=== PATIENT | male | born 1950 | race Caucasian/White ===

== ENCOUNTER → 2017-11-25 | Outpatient (CLI) | payer MEDICARE, OTHER ==
--- NOTE | 2017-11-26 08:03 | CTL ---
EXAMINATION TYPE: CT Low Dose Lung DATE OF EXAM ORDERED: 11/25/2017 HISTORY: Personal history of tobacco abuse and COPD. Lung cancer screening CT DLP: 137.[address] CTDI: 3.4 mGy Automated exposure control for dose reduction was used. SCREENING VISIT: Initial COMPARISON: None TECHNIQUE: Low dose computed tomography scan was performed through the chest at 1 mm thick sections a nd reconstructed images in the coronal plane at [address] DIAGNOSTIC QUALITY: Satisfactory FINDINGS: LUNG NODULES: None. There is a 5 mm pulmonary nodule in the right upper lobe along the interlobar fissure that elongates on sagittal images such as series 7 image 125 and is seen on axial series 4 image 141. This is favore d to represent an intrafissural lymph node, however follow-up is recommended given the patient's high risk nature. Additionally there is a subpleural right lower lobe 6 mm pulmonary nodule with solid characteristics on series 4 image 152. Within the right middle lobe there is a subpleural solid 5 mm pulmonary nodule on series 4 image 199. In the right middle lobe there is a solid 3 mm nodule on series 4 image 185. On the left lower lobe medially on series 4 image 180 posterior to the descending thoracic aorta ther e is a 4 mm solid subpleural pulmonary nodule. LUNGS: COPD: Severity: Mild centrilobular Fibrosis: Severity: None Lymph nodes: No adenopathy Other findings: Pleural parenchymal scarring along lung bases is multifocal. There is a prominent epi cardial fat pad on the right. RIGHT PLEURAL SPACE: Effusion: None Calcification: None Thickening: None Pneumothorax: None LEFT PLEURAL SPACE: Effusion: None Calcification: None Thickening: None Pneumothorax: None HEART: Heart Size: Heart is unenlarged however the ascending thoracic aorta is upper limits of normal size m easuring 4.0 in the main pulmonary artery is just above upper limits of normal size measuring 3.1 cm. Coronary calcification: Moderate three-vessel Pericardial effusion: None OTHER FINDINGS: Upper abdomen: Grossly unremarkable in its visualized unenhanced portions Bony thorax: Minimal multilevel degenerative changes of the thoracic spine. Schmorl's node deformity of the midthoracic vertebral body. Supraclavicular region: No adenopathy IMPRESSION: 1. Bilateral subcentimeter pulmonary nodules compatible with a LUNG-RADS 3-Probably [id number] m follow-up suggested with six-month low dose CT. 2. Ascending thoracic aorta and main pulmonary artery are upper limits of normal and mildly enlarged respectively. 3. Moderate three-vessel coronary artery calcifications. 4. Mild centrilobular pulmonary emphysema. FOLLOW UP CT CHEST RECOMMENDATION: Six-month low dose CT CT LUNG RAD: Lung-Rad 3 Probably Benign
== END | disposition home or self-care (01) ==
LOC: RADCTMAIN 15:46
PROVIDERS: ATTEND Family Medicine
DX: Z12.2 Encounter for screening for malignant neoplasm of respiratory organs (principal); I25.10 Atherosclerotic heart disease of native coronary artery without angina pectoris; J43.2 Centrilobular emphysema; R91.8 Other nonspecific abnormal finding of lung field; I77.810 Thoracic aortic ectasia; I28.1 Aneurysm of pulmonary artery; Z87.891 Personal history of nicotine dependence

== ENCOUNTER → 2018-09-27 | Outpatient (CLI) | payer OTHER ==
--- NOTE | 2018-09-27 14:27 | CT ---
EXAMINATION TYPE: CT chest wo con DATE OF EXAM: 09/27/2018 COMPARISON: 11/25/2017 HISTORY: Follow up scan per patient CT DLP: 417.6 mGycm. Automated Exposure Control for Dose Reduction was Utilized. TECHNIQUE: CT scan of the thorax is performed without IV contrast. FINDINGS: LUNGS: There is mild background centrilobular emphysema. There is no pleural effusion or pneumothora x seen. The tracheobronchial tree is patent. There is decreased size and conspicuity of the nodule along the interlobar fissure previously measuri ng 5 mm and now measuring 4 mm. This is also decrease in density and marked on series 4 image 30. Thi s is highly favored to represent an intrafissural lymph node, benign. The pleural-based 6 mm pulmonary nodule along the right lower lobe posteriorly is unchanged in size a s on series 4 image 31. The right middle lobe pulmonary nodule measuring 5 mm on the prior exam again appears solid in nature and again currently measures 5 mm. MEDIASTINUM: Lack of IV contrast is noted to limit evaluation for mediastinal and especially hilar ad enopathy. There are no definitive greater than 1 cm hilar or mediastinal lymph nodes. Again the [facility] thoracic aorta is mildly enlarged measuring approximately 4.1 cm. No cardiomegaly or pericardial effusion is seen. Moderate three-vessel coronary artery calcifications are seen. OTHER: Too small to accurately characterize solitary hepatic lesion measures 8 mm on series 3 image 6 0. This is retrospectively unchanged from the prior 11/25/2017. There is slight low attenuation of the hepatic parenchyma although this does not yet meet criteria for hepatic steatosis. Minimal multileve l degenerative change of the thoracic spine and Schmorl's node formation of the midthoracic vertebral body are unchanged. IMPRESSION: 1. Stable bilateral pulmonary nodules measuring up to 6 mm. Return to annual screening is recommended with follow-up low dose chest CT in to 12 months. 2. Redemonstration of a mildly aneurysmal ascending thoracic aorta and moderate three-vessel coronary artery calcifications, marker of coronary artery disease.
== END | disposition home or self-care (01) ==
LOC: RADCTMAIN 12:55
PROVIDERS: ATTEND Internal Medicine Critical Care Medicine
DX: R91.8 Other nonspecific abnormal finding of lung field (principal); I25.10 Atherosclerotic heart disease of native coronary artery without angina pectoris; I71.2 Thoracic aortic aneurysm, without rupture
CPT/HCPCS: 71250

== ENCOUNTER → 2018-10-20 | Outpatient (CLI) | payer OTHER ==
[2018-10-20 08:38] LABS: HCT 41.8 % (39.0-53.0); HGB 13.3 gm/dL (13.0-17.5); MCH 28.8 pg (25.0-35.0); MCHC 31.8 g/dL (31.0-37.0); MCV 90.8 fL (80.0-100.0); Mean Platelet Volume 6.2; Platelet Count 330 k/uL (150-450); RDW 13.7 % (11.5-15.5); WBC 7.6 k/uL (3.8-10.6)
[2018-10-20 08:50] LABS: Anion Gap 6 mmol/L; Blood Urea Nitrogen 15 mg/dL (9-20); Carbon Dioxide 27 mmol/L (22-30); Chloride 106 mmol/L (98-107); Potassium 4.4 mmol/L (3.5-5.1); Sodium 139 mmol/L (137-145)
== END | disposition home or self-care (01) ==
LOC: LABPAT 07:43
PROVIDERS: ATTEND Internal Medicine Interventional Cardiology
DX: Z01.812 Encounter for preprocedural laboratory examination (principal); I25.10 Atherosclerotic heart disease of native coronary artery without angina pectoris; I10 Essential (primary) hypertension
CPT/HCPCS: 36415; 80051; 82565; 84520; 85027

== ENCOUNTER 2018-11-02 06:25 | Day surgery (SDC) | payer OTHER ==
[~2018-11-02 06:25] MED LIST: ALPRAZolam 0.25 MG TAB PO PRN; ALPRAZolam 0.5 MG TAB PO PRN; ASPIRIN 325 MG TAB PO STA; ATORVASTATIN 80 MG TAB PO STA; NITROGLYCERIN SL TABS 0.4 MG TAB SUBLINGUAL PRN; SODIUM CHLORIDE 0.9% 1,000 ML in EMPTY BAG 1 BAG IV ONE
[2018-11-02] MEDS ORDERED: VERAPAMIL 2.5 MG/ML 2 ML AMP ONE (07:30)
[2018-11-02] MEDS ORDERED: LIDOCAINE 1% INJ 10MG/ML (20 ML MDV) ONE (07:30)
[2018-11-02] MEDS ORDERED: HEPARIN SODIUM 1,000 UN/ML (10ML VL) ONE (07:30)
[2018-11-02] MEDS ORDERED: MIDAZOLAM (PF) 2 MG/2 ML VIAL IV ONE ×3 (07:55→08:30)
[2018-11-02] MEDS ORDERED: LIDOCAINE 1% INJ 10MG/ML (20 ML MDV) SQ ONE (07:55)
[2018-11-02] MEDS ORDERED: BIVALIRUDIN BOLUS 250 MG/50 ML IV ONE (08:30)
[2018-11-02] MEDS ORDERED: BIVALIRUDIN 250 MG in SODIUM CHLORIDE 0.9% 36 ML IV ONE (08:31)
[2018-11-02] MEDS ORDERED: TICAGRELOR 90 MG TAB ONE (08:40)
[2018-11-02] MEDS ORDERED: IOPAMIDOL-370 100ML BTL INJ ONE ×2 (08:43→08:51)
[2018-11-02] MEDS ORDERED: TICAGRELOR 90 MG TAB PO ONE (08:43)
[2018-11-02] MEDS ORDERED: NITROGLYCERIN 1000MCG/10ML SYRINGE INTRACORON ONE (08:47)
[2018-11-02] MEDS ORDERED: ZOLPIDEM 5 MG TAB PO PRN (09:08)
[2018-11-02] MEDS ORDERED: NITROGLYCERIN SL TABS 0.4 MG TAB SUBLINGUAL PRN (09:08)
[2018-11-02] MEDS ORDERED: MAG HYDROX/AL HYDROX/SIMETH 30 ML CUP PO PRN (09:08)
[2018-11-02] MEDS ORDERED: RX INFO: IV CONTRAST WAS GIVEN 1 EACH MISC MISCELLANE PRN (09:08)
[2018-11-02] MEDS ORDERED: ATROPINE SULFATE 0.1 MG/ML 10ML SYRINGE IV PRN (09:08)
[2018-11-02] MEDS ORDERED: SODIUM CHLORIDE 0.9% 1,000 ML IV SCH (09:15)
[2018-11-02] MEDS ORDERED: fentaNYL (PF) 50 MCG/ML 2 ML AMP IVP PRN (11:10)
[2018-11-02] MEDS ORDERED: fentaNYL (PF) 50 MCG/ML 2 ML AMP ONE (11:12)
[2018-11-02 15:12] VITALS: BMI 27.8
--- NOTE | 2018-11-02 16:50 | CC ---
CARDIAC CATHETERIZATION REPORT DATE OF SERVICE: 11/02/2018 PERFORMING PHYSICIAN: Presley Perez MD, administrative officer. PROCEDURES PERFORMED: 1. Selective right and left coronary angiogram. 2. Left heart catheterization. 3. Successful stenting of the mid LAD using a 3.0 x 15 mm Xience drug-eluting stent with an excellent angiographic result and reduction of stenosis from 95% to 0%. INDICATION: This is a pleasant 68-year-old gentleman with history of coronary artery disease as well as hypertension and dyslipidemia who was experiencing symptoms of chest discomfort with extreme exertion. He underwent myocardial perfusion imaging stress test and that showed reversible . Because of that, heart catheterization was advised. APPROACH: Right common femoral artery. COMPLICATIONS: None. LEVEL OF SEDATION: Moderate with sedation length of about 45 minutes. PROCEDURE DESCRIPTION: After obtaining informed consent, the patient was brought to the cardiac laborer bituminous paving. The right common femoral artery was cannulated using micropuncture technique and the micropuncture wire passed easily. Then I placed a 6-Afghan sheath in the right common femoral artery. After that I did selective right and left coronary angiogram using JR4 and JL4 catheters. Left heart catheterization was performed using a 6-Afghan pigtail catheter. After that I did intervene on the LAD. Please see a separate paragraph for that. SELECTIVE CORONARY ANGIOGRAM: 1. The right coronary artery is a large-caliber vessel and is a dominant vessel. The proximal RCA has intermediate lesion that appeared to be in the range of 50% to 60%. The RCA in the mid portion appeared to be normal and distally appeared to have mild disease only and bifurcates into PDA and PLV branches. Both appeared to be angiographically normal. 2. The left main appeared to be angiographically normal. It furcates into left circumflex, ramus intermedius and left anterior descending artery. 3. The left circumflex is a large-caliber vessel. It is a nondominant vessel. The proximal circumflex appeared to have mild disease only. The mid circumflex has a long tubular lesion that appeared to be in the range of 95%. The circumflex gives rise after the lesion to OM branch which appeared to be normal and continues after that as a small-caliber vessel in the AV groove. 4. The ramus intermedius appeared to be a large-caliber vessel and seems to be angiographically normal. 5. The LAD. The proximal LAD appeared to have mild disease only. The mid LAD has a lesion that appeared to be in the range of 80%. This is by the bifurcation of the first diagonal branch, which appeared to be normal. The LAD distally appeared to be normal. HEMODYNAMICS: The left ventricular end-diastolic pressure was about 12 mmHg without significant gradient across the aortic valve. PCI OF THE LAD: Anticoagulation was initiated using Angiomax. Subsequently I did engage the left main using JL4 guide. A Whisper wire was used to wire the LAD. I did balloon angioplasty using a 2.5 x 12 mm balloon before I deployed a 3.0 x 15 mm Xience, where the stent was positioned under fluoroscopic guidance and deployed under 16 atmospheres for 20 seconds with the following angiogram showing good angiographic results. CONCLUSION: 1. Critical disease involving the mid left circumflex coronary artery. 2. Severe disease involving the mid LAD. 3. Successful stenting of the mid LAD using 3.0 x 15 mm Xience drug-eluting stent with excellent angiographic results. POST-PROCEDURE MANAGEMENT: 1. Atherectomy and stenting of the left circumflex. 2. Follow up with the patient. MMODL / IJN: [id number] /
[2018-11-02 19:53] VITALS: RESP 17
[2018-11-02] MEDS: TICAGRELOR 90 MG TAB PO SCH (19:54)
[2018-11-02] MEDS: SYMBICORT 160-4.5 MCG INHALER INHALATION SCH (20:43)
[2018-11-03 06:56] LABS: Anion Gap 5 mmol/L; Basophils % (A) 1 %; Blood Urea Nitrogen 11 mg/dL (9-20); Calcium 9.5 mg/dL (8.4-10.2); Carbon Dioxide 29 mmol/L (22-30); Chloride 106 mmol/L (98-107); Eosinophils # (A) 0.2 k/uL (0-0.7); Eosinophils % (A) 2 %; Glucose 102 mg/dL (74-99); HCT 38.7 % (39.0-53.0); HGB 12.6 gm/dL (13.0-17.5); Lymphocytes # (A) 0.8 k/uL (1.0-4.8); Lymphocytes % (A) 10 %; MCH 29.5 pg (25.0-35.0); MCHC 32.4 g/dL (31.0-37.0); Mean Platelet Volume 6.8; Monocytes # (A) 0.4 k/uL (0-1.0); Monocytes % (A) 4 %; Neutrophils # (A) 6.5 k/uL (1.3-7.7); Neutrophils % (A) 81 %; Platelet Count 312 k/uL (150-450); Potassium 4.7 mmol/L (3.5-5.1); RBC 4.26 m/uL (4.30-5.90); RDW 14.3 % (11.5-15.5); Sodium 140 mmol/L (137-145)
[2018-11-03] MEDS ORDERED: PANTOPRAZOLE 40 MG TABLET PO SCH (07:30)
[2018-11-03] MEDS: SYMBICORT 160-4.5 MCG INHALER INHALATION SCH (08:05)
[2018-11-03] MEDS: TICAGRELOR 90 MG TAB PO SCH (08:39)
[2018-11-03 08:46] VITALS: BP 147/98; PULSE 102; TEMP 97.6
[2018-11-03] MEDS ORDERED: ASPIRIN 81 MG PO SCH ×2 (09:00)
[2018-11-03] MEDS ORDERED: FERROUS SULFATE 325 MG TAB PO SCH (09:00)
[2018-11-03] MEDS ORDERED: CHOLECALCIFEROL 1,000 UNIT TAB PO SCH (09:00)
[2018-11-03] MEDS ORDERED: LOSARTAN 50 MG TAB PO SCH (09:00)
[2018-11-03] MEDS ORDERED: ATORVASTATIN 40 MG TAB PO SCH (09:00)
[2018-11-03] MEDS ORDERED: MONTELUKAST 10 MG TAB PO SCH (09:00)
[2018-11-03] MEDS ORDERED: FINASTERIDE 5 MG TAB PO SCH (09:00)
--- NOTE | 2018-11-03 18:05 | DS ---
DISCHARGE SUMMARY ADMISSION DATE: November 02, 2018. DISCHARGE DATE: November 03, 2018 BRIEF HISTORY: This is a pleasant 68-year-old gentleman who was experiencing chest discomfort and underwent myocardial perfusion imaging stress test which came in to be abnormal showing reversible defect. The heart catheterization was advised. He underwent heart catheterization yesterday and was found to have severe disease involving the LAD and left circumflex. The patient underwent successful stenting of the LAD with good angiographic results and without any complication. On follow up with him today, he is doing good. The right groin is soft and nontender and without any bruises. The patient is going to be discharged home today on dual anti-platelet therapy and I will follow up with the patient in a week in the office. MMODL / IJN: [id number] /
== END 2018-11-03 09:23 | disposition home or self-care (01) ==
LOC: CATHCVL 06:25 → 3SCARD 08:52 → CATHCVL 11-03 09:23
PROVIDERS: ATTEND Internal Medicine Interventional Cardiology
DX: I25.10 Atherosclerotic heart disease of native coronary artery without angina pectoris (principal); I10 Essential (primary) hypertension; Z82.49 Family history of ischemic heart disease and other diseases of the circulatory system; I71.2 Thoracic aortic aneurysm, without rupture; E78.5 Hyperlipidemia, unspecified; Z79.82 Long term (current) use of aspirin; Z79.51 Long term (current) use of inhaled steroids; Z79.899 Other long term (current) drug therapy; Z88.5 Allergy status to narcotic agent
CPT/HCPCS: 94640 ×2; 93458; 80048; 85025; C9600; C1769 ×5; C1887 ×3; C1725; C1894 ×2; C1874; S0138; J2001; J3010; J0583; Q9967; J2250

== ENCOUNTER 2018-11-10 07:30 | Inpatient (IN) | payer OTHER ==
[~2018-11-10 07:30] MED LIST changes: +ASPIRIN 325 MG TAB PO ONE; -ASPIRIN 325 MG TAB PO STA; +ATORVASTATIN 80 MG TAB PO ONE; -ATORVASTATIN 80 MG TAB PO STA
[2018-11-10 12:02] LABS: Basophils # (A) 0.1 k/uL (0-0.2); Basophils % (A) 1 %; Eosinophils # (A) 0.2 k/uL (0-0.7); Eosinophils % (A) 2 %; HCT 41.6 % (39.0-53.0); HGB 13.9 gm/dL (13.0-17.5); Lymphocytes % (A) 11 %; MCH 30.1 pg (25.0-35.0); MCHC 33.4 g/dL (31.0-37.0); MCV 90.3 fL (80.0-100.0); Mean Platelet Volume 6.5; Monocytes # (A) 0.4 k/uL (0-1.0); Monocytes % (A) 5 %; Neutrophils # (A) 7.3 k/uL (1.3-7.7); Neutrophils % (A) 80 %; Platelet Count 409 k/uL (150-450); RBC 4.61 m/uL (4.30-5.90); RDW 13.1 % (11.5-15.5); WBC 9.2 k/uL (3.8-10.6)
[2018-11-10] MEDS ORDERED: LIDOCAINE 1% INJ 10MG/ML (20 ML MDV) SQ ONE (12:42)
[2018-11-10] MEDS ORDERED: SODIUM CHLORIDE 0.9% 1,000 ML IV ONE (12:46)
[2018-11-10] MEDS ORDERED: MIDAZOLAM (PF) 2 MG/2 ML VIAL IV ONE ×2 (12:46→14:11)
[2018-11-10] MEDS ORDERED: BIVALIRUDIN BOLUS 250 MG/50 ML IV ONE (12:52)
[2018-11-10] MEDS ORDERED: BIVALIRUDIN 250 MG in SODIUM CHLORIDE 0.9% 50 ML IV ONE ×2 (12:53→13:26)
[2018-11-10] MEDS ORDERED: fentaNYL (PF) 50 MCG/ML 2 ML AMP IV ONE (13:31)
[2018-11-10] MEDS ORDERED: IOPAMIDOL-370 125ML BTL INJ ONE (14:22)
[2018-11-10] MEDS ORDERED: CLOPIDOGREL 75 MG TAB PO ONE (14:22)
[2018-11-10] MEDS ORDERED: ALBUTEROL NEBULIZED 2.5 MG/3 ML INHALATION PRN (18:11)
[2018-11-10] MEDS ORDERED: SODIUM CHLORIDE 0.9% 1,000 ML IV SCH (18:15)
[2018-11-10] MEDS: SYMBICORT 160-4.5 MCG INHALER INHALATION SCH (19:59)
--- NOTE | 2018-11-10 21:41 | PTCA ---
PERCUTANEOUSTRANS CORORONARY ANGIOGRAPHY DATE OF SERVICE: 11/10/2018 PERFORMING PHYSICIAN: Presley Perez MD, data center solutions architect. PROCEDURES PERFORMED: 1. Atherectomy of the left circumflex coronary artery using the orbital atherectomy device from [facility]. 2. Successful stenting of the mid left circumflex coronary artery using 2.75 x 23 mm Xience drug-eluting stent with excellent angiographic results and reduction of stenosis from 99% to 0%. INDICATION: This is a 68-year-old gentleman with history of coronary artery disease who underwent heart catheterization last week for shortness of breath with exertion. The heart catheterization at that point revealed extremely calcified right and left coronary systems with severe disease involving the mid LAD as well as critical disease involving the mid left circumflex coronary artery. He underwent successful stenting of the LAD with good angiographic results. He continued to have shortness of breath with exertion when he was seen in the office last week. Because of that, he was brought today to undergo PCI of the left circumflex. APPROACH: Right common femoral artery. COMPLICATIONS: None. LEVEL OF SEDATION: Moderate, with sedation length of 1 hour and 40 minutes. PROCEDURE DESCRIPTION: After obtaining informed consent, the patient was brought to the cardiac irrigation laborer. The right common femoral artery was cannulated using micropuncture technique, and the micropuncture wire passed easily. Then I placed a 6-Japanese sheath in the right common femoral artery. At that point anticoagulation was initiated using Angiomax. Subsequently I did engage the left main using XB35 LAD guide. I did cross the lesion in the left circumflex using a long whisper J wire where the wire was advanced through the OM to second OM branch of the left circumflex. After that I attempted doing balloon angioplasty using 2.0 x 12 mm balloon, but the balloon would not cross the lesion in the mid left circumflex coronary artery. I did downgrade the balloon into 1.5 mm balloon, but that balloon would not cross that lesion in the mid left circumflex either. At that point I decided to do [id number] balloon which was 1.2 mm balloon. With that I was able to advance the balloon to the mid left circumflex while I did balloon angioplasty with that balloon. After that I tried to advance 2.0 x 8 mm semi-compliant balloon, and the balloon was able to cross the lesion in the circumflex using a snow wire with a run- through wire, but in spite of that the balloon would not open up because the lesion was extremely calcified. At that point I decided to use a non-compliant balloon, so I tried advancing 2.0 x 12 mm NC balloon, but the balloon would not cross that lesion in the mid left circumflex in spite of double wire. After that I tried using backup support with GuideLiner and I was unable. At that point, I decided to stop and do atherectomy of the left circumflex coronary artery. I did exchange my long Whisper wire for a ViperWire using a Super Cross catheter. After that I advanced the atherectomy device to the mid left circumflex, where I did atherectomy under low speed twice. I was able after that to advance a 2.0 x 12 mm NC balloon where I did balloon angioplasty of the left circumflex where the balloon was inflated under 12 atmospheres for 20 seconds. After that I advanced 2.75 x 23 mm Xience OLINDA where the stent was positioned under fluoroscopic guidance and deployed under 10 atmospheres for 20 seconds with the following angiogram showing excellent angiographic results. At that point the procedure was completed without any complication. POST-PROCEDURE MANAGEMENT: 1. Dual anti-platelet therapy. 2. Risk factor modifications. 3. Follow up with the patient. MMODL / IJN: [id number] /
[2018-11-11] MEDS ORDERED: PANTOPRAZOLE 40 MG TABLET PO SCH (07:30)
[2018-11-11 07:46] LABS: Basophils % (A) 1 %; Eosinophils # (A) 0.2 k/uL (0-0.7); Eosinophils % (A) 3 %; HCT 37.2 % (39.0-53.0); HGB 12.1 gm/dL (13.0-17.5); Lymphocytes # (A) 0.9 k/uL (1.0-4.8); Lymphocytes % (A) 12 %; MCH 29.7 pg (25.0-35.0); MCHC 32.5 g/dL (31.0-37.0); MCV 91.4 fL (80.0-100.0); Mean Platelet Volume 6.3; Monocytes # (A) 0.4 k/uL (0-1.0); Monocytes % (A) 6 %; Neutrophils # (A) 5.5 k/uL (1.3-7.7); Neutrophils % (A) 77 %; Platelet Count 360 k/uL (150-450); RBC 4.07 m/uL (4.30-5.90); RDW 13.2 % (11.5-15.5); WBC 7.2 k/uL (3.8-10.6)
[2018-11-11 07:53] VITALS: BP 125/78; PULSE 66; RESP 20; TEMP 97.9
[2018-11-11 08:10] LABS: Anion Gap 7 mmol/L; Blood Urea Nitrogen 14 mg/dL (9-20); Calcium 9.1 mg/dL (8.4-10.2); Carbon Dioxide 25 mmol/L (22-30); Chloride 105 mmol/L (98-107); Glucose 89 mg/dL (74-99); Potassium 4.1 mmol/L (3.5-5.1); Sodium 137 mmol/L (137-145)
[2018-11-11] MEDS ORDERED: CLOPIDOGREL 75 MG TAB PO SCH (09:00)
[2018-11-11] MEDS ORDERED: MONTELUKAST 10 MG TAB PO SCH (09:00)
[2018-11-11] MEDS ORDERED: ASPIRIN 81 MG PO SCH (09:00)
[2018-11-11] MEDS ORDERED: CHOLECALCIFEROL 1,000 UNIT TAB PO SCH (09:00)
[2018-11-11] MEDS ORDERED: LOSARTAN 50 MG TAB PO SCH (09:00)
[2018-11-11] MEDS ORDERED: FINASTERIDE 5 MG TAB PO SCH (09:00)
[2018-11-11] MEDS ORDERED: ATORVASTATIN 40 MG TAB PO SCH (09:00)
[2018-11-11] MEDS ORDERED: FERROUS SULFATE 325 MG TAB PO SCH (09:00)
[2018-11-11] MEDS ORDERED: METOPROLOL SUCCINATE (ER) 25 MG TAB.ER.24H PO SCH (09:45)
[2018-11-11] MEDS: SYMBICORT 160-4.5 MCG INHALER INHALATION SCH (09:56)
--- NOTE | 2018-11-11 09:59 | P.PN ---
Subjective Progress Note Date: 11/11/18 Discharge note This is a pleasant 68-year-old gentleman with known history of coronary artery disease who underwent heart catheterization last week because of symptoms of exertional shortness of breath. The cath revealed extremely calcified right and left coronary systems with severe disease involving the mid LAD as well as critical disease involving the mid left circumflex. He underwent successful trever nting of the LAD with good angiographic results, he continued to have symptoms of exertional shortness of breath and was brought back to the hospital yesterday to undergo stenting of the circumflex artery. This was performed yesterday by Dr. Hurt. Patient was seen and examined this morning, feels well, denies any shortness of breath at present although he states he has not walked much in the hallway yet. His blood pressure this morning 124/78 with a heart rate in the 60s, 95% on room air. White blood cell count 7.2, hemoglobin 12.2, platelet count 360. Sodium 137, potassium 4.1, BUN 14 and creatinine 0.8. KG shows a normal sinus rhythm with no changes from post-PCI. Objective - Vital Signs Vital signs: Vital Signs Temp 97.9 F 11/11/18 07:52 Pulse 66 11/11/18 07:52 Resp 20 11/11/18 07:52 BP 125/78 11/11/18 07:52 Pulse Ox 95 11/11/18 07:52 Intake & Output 11/10/18 11/11/18 11/11/18 18:59 06:59 18:59 Intake Total 368.5 1300 120 Balance 368.5 1300 120 Weight 93 kg Intake: IV 368.5 Intake, IV Titration 400 Amount Sodium Chloride 0.9% 1, 400 000 ml @ 100 mls/hr IV . Q10H [facility] Rx#:[id number] Oral 900 120 Other: Voiding Method Toilet # Voids 2 0 # Bowel Movements 0 - Exam PHYSICAL EXAMINATION: GENERAL: 68-year-old gentleman in no acute distress at the time of my examination HEENT: Head is atraumatic, normocephalic. Pupils equal, round. Sclera anicter ic. Conjunctiva are clear. Mucous membranes of the mouth are moist. Neck is supple. There is no elevated jugular venous pressure. No carotid bruit is heard. HEART EXAMINATION: Heart S1, S2 normal. No murmur or gallop heard. CHEST EXAMINATION: Lungs are clear to auscultation and precussion. No chest wall tenderness is noted on palpation or with deep breathing. ABDOMEN: Soft, nontender. Bowel sounds are heard. No organomegaly noted. EXTREMITIES: 2+ peripheral pulses with no evidence of peripheral edema and no calf tenderness noted. Right groin soft, no evidence of any hematoma, mild ecchymosis. NEUROLOGIC patient is awake, alert and oriented 3 . . - Labs CBC & Chem 7: 11/11/18 07:15 11/11/18 07:15 Labs: Abnormal Lab Results - Last 24 Hours (Table) 11/11/18 Range/Units 07:15 RBC 4.07 L (4.30-5.90) m/uL Hgb 12.1 L (13.0-17.5) gm/dL Hct 37.2 L (39.0-53.0) % Lymphocytes # 0.9 L (1.0-4.8) k/uL Assessment and Plan Plan: Assessment and plan #1 status post angioplasty and stenting of a calcified circumflex artery. #2 recent angioplasty and stenting of the LAD #3 hypertension #4 hyperlipidemia #5 asthma Plan Patient may be able to be discharged home today. We'll make him a follow-up appointment to see Dr. Hurt in the office in one week. Patient will be discharged home on aspirin 81 mg daily, Lipitor 40 mg daily, Plavix 75 mg daily, Cozaar 100 mg daily, Toprol-XL 12-1/2 mg daily, and sublingual nitroglycerin as needed for chest pain. DNP note has been reviewed, I agree with a documented findings and plan of care. Patient was seen and examined.
== END 2018-11-11 11:29 | disposition home or self-care (01) | DRG 247 ==
LOC: 2ORMAIN 11:11 → 3SCARD 16:55
PROVIDERS: ADMIT Internal Medicine Interventional Cardiology; ATTEND Internal Medicine Interventional Cardiology
PROC: 027034Z Dilation of Coronary Artery, One Artery with Drug-eluting Intraluminal Device, Percutaneous Approach (ICD-10-PCS; 2018-11-10)
PROC: X2C0361 Extirpation of Matter from Coronary Artery, One Artery using Orbital Atherectomy Technology, Percutaneous Approach, New Technology Group 1 (ICD-10-PCS; principal; 2018-11-10 12:30)
DX: I25.10 Atherosclerotic heart disease of native coronary artery without angina pectoris (principal); E78.5 Hyperlipidemia, unspecified; I10 Essential (primary) hypertension; J45.909 Unspecified asthma, uncomplicated
CPT/HCPCS: 80048; 85025; 94640; C1874

== ENCOUNTER → 2020-01-20 | Outpatient (CLI) | payer OTHER ==
--- NOTE | 2020-01-20 11:17 | CTL ---
EXAMINATION TYPE: CT Low Dose Lung DATE OF EXAM ORDERED: 01/20/2020 HISTORY: . Lung cancer screening CT DLP: [address] CTDI: 2.4 mGy Automated exposure control for dose reduction was used. SCREENING VISIT: COMPARISON: 11/25/2017, 09/27/2018 TECHNIQUE: Low dose computed tomography scan was performed through the chest at 1 mm thick sections a nd reconstructed images in the coronal plane at [address] DIAGNOSTIC QUALITY: Satisfactory FINDINGS: LUNG NODULES: 1. 6 mm nodule pleural-based superior segment right lower lobe now measures 6 mm. 2. Previously described right middle lobe multiple pulmonary nodule measuring 5 mm axes in the anteri or segment of the right upper lobe and is stable 3. Nodule seen along the interlobar fissure measures 5 mm and is stable 4. Subpleural nodule anterior segment right upper lobe measures 5 mm and previously measured 4 mm.. Left lower lobe 3 mm nodule stable. LUNGS: Groundglass changes are seen most typical of atelectasis. No pneumothorax or pleural effusion. No ple ural thickening. No pleural calcifications. Mild hyperinflation correlate for COPD. Mediastinum: Atherosclerotic changes aorta. Maximal dimension of the aorta measures approximately 3.8 cm compatibl e with ectasia. Dense three-vessel coronary artery disease and mild cardiomegaly noted. OTHER FINDINGS: Hypertrophic change of the spine. Chronic endplate deformity involving one of the lower thoracic segm ent incidentally noted IMPRESSION: 1. Multiple pulmonary nodule are again noted which appear to be essentially stable in size relative t o the prior exam. Largest nodule measures 6 mm. 2. Dense three-vessel coronary artery disease. FOLLOW UP CT CHEST RECOMMENDATION: Follow-up in one year with annual screening CT LUNG RAD: Lung-Rad 2 Benign Appearance or Behavior
== END | disposition home or self-care (01) ==
LOC: RADCTMAIN 08:25
PROVIDERS: ATTEND Internal Medicine Critical Care Medicine
DX: Z12.2 Encounter for screening for malignant neoplasm of respiratory organs (principal); R91.8 Other nonspecific abnormal finding of lung field; I25.10 Atherosclerotic heart disease of native coronary artery without angina pectoris; Z87.891 Personal history of nicotine dependence

== ENCOUNTER 2020-12-17 08:49 | Day surgery (SDC) | payer OTHER ==
[2020-12-14 10:42] VITALS: BMI 28.5
[~2020-12-17 08:49] MED LIST changes: -ALPRAZolam 0.25 MG TAB PO PRN; -ALPRAZolam 0.5 MG TAB PO PRN; -ASPIRIN 325 MG TAB PO ONE; -ATORVASTATIN 80 MG TAB PO ONE; +LACTATED RINGERS 1,000 ML IV SCH; +LIDOCAINE 1% (10MG/ML) FOR IV START INTRADERMA PRN; -NITROGLYCERIN SL TABS 0.4 MG TAB SUBLINGUAL PRN; -SODIUM CHLORIDE 0.9% 1,000 ML in EMPTY BAG 1 BAG IV ONE
[2020-12-17 09:28] VITALS: TEMP 96.5
[2020-12-17] MEDS ORDERED: PROPOFOL 10 MG/ML 20 ML VIAL IV ONE (10:22)
[2020-12-17 10:54] VITALS: RESP 16
--- NOTE | 2020-12-17 10:57 | P.PCN ---
Date of Procedure: 12/17/20 Description of Procedure: BRIEF HISTORY: Patient is a 62-year-old male presenting for outpatient colonoscopy for screening for malignant neoplasm of the colon. Last colonoscopy in 2014. Personal history of colon polyps and hemorrhoids. No change in bowel habits or family history of colon cancer. PROCEDURE PERFORMED: Colonoscopy with polypectomy . PREOPERATIVE DIAGNOSIS: Screening for malignant neoplasm in the colon, last colonoscopy 2014, patient reports personal history of colon polyps. ESTIMATED BLOOD LOSS: Minimal. IV sedation per Anesthesia. PROCEDURE: After informed consent was obtained, the patient, was brought into the endoscopy unit. IV sedation was administered by Anesthesia under continuous monitoring. Digital rectal examination was normal. Initially the Olympus CF-190 flexible video colonoscope was then inserted in the rectum, gradually advanced into the cecum without any difficulty. Careful examination was performed as the scope was gradually being withdrawn. Ileocecal valve and the appendiceal orifice were visualized and appeared normal. Prep was excellent. Mucosa of the cecum, ascending colon, transverse colon, descending colon, sigmoid colon, and rectum appeared normal, With a few scattered diverticula noted in the sigmoid colon. A diminutive rectal polyp measuring 1 mm in size was removed with cold forcep polypectomy. Retroflexion was performed in the rectum and no lesions were seen, Low-grade internal hemorrhoids seen. The patient tolerated the procedure well. IMPRESSION: Mild sigmoid diverticulosis. Diminutive rectal polyp removed with cold forcep polypectomy. Internal hemorrhoids. RECOMMENDATIONS: Findings of this examination were discussed with the patient and his family. Okay to resume diet. Okay to resume medications. Await pathology from polypectomy. Recommend repeat colonoscopy in 5 years for personal history of colon polyps.
[2020-12-17 11:07] VITALS: BP 114/72; PULSE 69
== END 2020-12-17 11:40 | disposition home or self-care (01) ==
LOC: ORWHC2ENDO 08:49
PROVIDERS: ATTEND Internal Medicine
DX: Z12.11 Encounter for screening for malignant neoplasm of colon (principal); K62.1 Rectal polyp; K57.30 Diverticulosis of large intestine without perforation or abscess without bleeding; K64.8 Other hemorrhoids; I25.10 Atherosclerotic heart disease of native coronary artery without angina pectoris; I10 Essential (primary) hypertension; E78.5 Hyperlipidemia, unspecified; J44.9 Chronic obstructive pulmonary disease, unspecified; K21.9 Gastro-esophageal reflux disease without esophagitis; Z86.010 Personal history of colon polyps; Z87.891 Personal history of nicotine dependence; Z90.89 Acquired absence of other organs; Z79.82 Long term (current) use of aspirin; Z79.51 Long term (current) use of inhaled steroids; Z79.899 Other long term (current) drug therapy; Z88.5 Allergy status to narcotic agent
CPT/HCPCS: 88305; 45380; J2704

== ENCOUNTER → 2021-01-28 | Outpatient (CLI) | payer OTHER ==
--- NOTE | 2021-01-28 17:05 | CTL ---
EXAMINATION TYPE: CT Low Dose Lung DATE OF EXAM ORDERED: 01/28/2021, 11/25/2017 HISTORY: Tobacco use. Lung cancer screening CT DLP: 86.7 mGycm Automated exposure control for dose reduction was used. SCREENING VISIT: Subsequent COMPARISON: 01/20/2020 TECHNIQUE: Low dose computed tomography scan was performed through the chest at 1 mm thick sections a nd reconstructed images in the coronal plane at [address] DIAGNOSTIC QUALITY: Satisfactory FINDINGS: LUNG NODULES: Present, detailed below: 1. 0.7 x 0.6 cm nodule within the major fissure right upper lung field. Previous measurement 0.6 cm. Series 4 image 129 2. 0.7 cm pleural-based nodular density superior segment right lower lobe, series 4 image 136 previou s measurement of 0.0 cm. 3. 0.4 cm peripheral nodule right middle lobe. Series 4 image 191, stable LUNGS: COPD: Severity: None Fibrosis: Severity: None Lymph nodes: None Other findings: None RIGHT PLEURAL SPACE: Effusion: None Calcification: None Thickening: None Pneumothorax: None LEFT PLEURAL SPACE: Effusion: None Calcification: None Thickening: None Pneumothorax: None HEART: Heart Size: Normal Coronary calcification: Marked Pericardial effusion: None OTHER FINDINGS: Upper abdomen: Normal Bony thorax: Normal Supraclavicular region: Normal Other: Ascending thoracic aorta: Main pulmonary arteries 4.2 cm. Main pulmonary bifurcation is 3.6 cm . IMPRESSION: 1. No suspicious changes to suggest malignancy. Nodules essentially stable from comparison studies. 2. Ascending thoracic aortic aneurysm, stable FOLLOW UP CT CHEST RECOMMENDATION: Follow-up low-dose CT chest one year CT LUNG RAD: 2
== END | disposition home or self-care (01) ==
LOC: RADCTMAIN 11:32
PROVIDERS: ATTEND Internal Medicine Critical Care Medicine
DX: Z12.2 Encounter for screening for malignant neoplasm of respiratory organs (principal); R91.8 Other nonspecific abnormal finding of lung field; I71.2 Thoracic aortic aneurysm, without rupture; Z87.891 Personal history of nicotine dependence
CPT/HCPCS: 71271

== ENCOUNTER → 2023-12-15 | Outpatient (CLI) | payer OTHER ==
--- NOTE | 2023-12-15 12:00 | US ---
EXAMINATION TYPE: US carotid duplex BILAT DATE OF EXAM: 12/15/2023 COMPARISON: NONE CLINICAL INDICATION: Male, 73 years old with history of Z13.6 CARDIO SCR; Prior smoker x about 50 yea rs. Hx hypertension, hyperlipidemia. TECHNIQUE: Carotid duplex ultrasound examination. Indirect Doppler criteria was utilized. FINDINGS: EXAM MEASUREMENTS: RIGHT: Peak Systolic Velocity (PSV) cm/sec ----- Right CCA: 77.9 ----- Right ICA: 148.0 ----- Right ECA: 124.0 ICA/CCA ratio: 1.9 RIGHT: End Diastole cm/sec ----- Right CCA: 13.1 ----- Right ICA: 39.7 ----- Right ECA: 13.6 LEFT: Peak Systolic Velocity (PSV) cm/sec ----- Left CCA: 85.1 ----- Left ICA: 68.0 ----- Left ECA: 162.5 ICA/CCA ratio: 0.8 LEFT: End Diastole cm/sec ----- Left CCA: 17.1 ----- Left ICA: 23.2 ----- Left ECA: 22.0 VERTEBRALS (direction of flow): Right Vertebral: Antegrade Left Vertebral: Antegrade Rhythm: Normal MACHINE HELPER NOTES: Elevated velocities within right ICA and left ECA. Right ICA appears very tortuous. Plaque seen within bilateral bulbs IMPRESSION: 1. 50-69% stenosis of the right carotid bifurcation. 2. Less than 50% stenosis of the left carotid bifurcation Criteria for Assigning % of Stenosis / Diameter reduction (Estimation based on the indirect measurements of the internal carotid artery velocities (ICA PSV). 1. Normal (no stenosis)=ICA PSV < 125 cm/s: ratio < 2.0: ICA EDV<40 cm/s. 2. Less than 50% stenosis=ICA PSV < 125 cm/s: ratio < 2.0: ICA EDV<40 cm/s. 3. 50 to 69% stenosis=ICA PSV of 125 to 230 cm/s: ration 2.0 ? 4.0: ICA EDV 40-100 cm/s. 4. Greater than 70% stenosis to near occlusion= ICA PSV > 230 cm/s: ratio > 4.0: ICA EDV > 100 cm/s. 5. Near occlusion= ICA PSV velocities may be low or undetectable: variable ratio and ICA EDV. 6. Total occlusion=unable to detect flow.
== END | disposition home or self-care (01) ==
LOC: RADUSWWP 11:08
PROVIDERS: ATTEND Family Medicine
DX: Z13.6 Encounter for screening for cardiovascular disorders (principal); I65.23 Occlusion and stenosis of bilateral carotid arteries; Z86.79 Personal history of other diseases of the circulatory system; Z87.891 Personal history of nicotine dependence
CPT/HCPCS: 93880

== ENCOUNTER → 2023-12-15 | Outpatient (CLI) | payer OTHER ==
--- NOTE | 2023-12-16 19:28 | CT ---
EXAMINATION TYPE: CT chest wo con DATE OF EXAM: 12/15/2023 COMPARISON: 01/28/2021 HISTORY: thoracic aortic aneurysm w/o rupture CT DLP: 444.6 mGycm. Automated Exposure Control for Dose Reduction was Utilized. TECHNIQUE: CT scan of the thorax is performed without IV contrast. FINDINGS: There are moderate emphysematous changes with an upper lobe predominance. There is a new 5 mm groundglass nodule in the right middle lobe. There is a stable 7 mm fissural nodu le on the right, a stable 8.3 mm subpleural parenchymal nodule in the right lower lobe posteriorly an d a 5.6 mm nodular subpleural parenchymal right middle lobe. There are no suspicious nodules or michael s in the left lung. There is no airspace consolidation or abnormal interstitial density. There is stable aneurysmal dilatation of ascending thoracic aorta which is approximately 4.1 cm. There is no mediastinal, hilar or axillary adenopathy. Limited scanning through the upper abdomen shows no gross abnormality. No focal osseous lesions are seen. IMPRESSION: 1. Stable 4.1 cm dilatation of the ascending thoracic aorta. 2. Multiple stable right lung nodules with a single new 5 mm nodule in the right middle lobe. Follow- up CT of the chest in 6 months is recommended to confirm stability 3. Moderate emphysematous changes. 4. No acute cardiopulmonary disease.
== END | disposition home or self-care (01) ==
LOC: RADCTMAIN 11:41
PROVIDERS: ATTEND Family Medicine
DX: I71.21 Aneurysm of the ascending aorta, without rupture (principal); J43.9 Emphysema, unspecified; R91.8 Other nonspecific abnormal finding of lung field
CPT/HCPCS: 71250

== ENCOUNTER → 2024-03-18 | Outpatient (CLI) | payer OTHER ==
--- NOTE | 2024-03-18 10:39 | MM ---
Reason for Exam: Clinical finding. Baseline mammogram. Indicated Problems: Lump or thickening of the right side for 2 Month(s). Prior Study Comparison: Patient's first Mammogram. Tissue Density: There are scattered areas of fibroglandular density. Findings: Analyzed By CAD. There is asymmetric subareolar flame-shaped density, right greater than left. No suspicious microcalcification or other discrete abnormality is seen. Overall Assessment: Incomplete: need additional imaging evaluation, BI-RAD 0 Management: Diagnostic Breast Ultrasound of both breasts. For findings which suggest gynecomastia . Electronically signed and approved by: Philip Bella M.D. Radiologist
--- NOTE | 2024-03-18 10:40 | USB ---
Reason for Exam: Clinical finding. Technique: Method: Targeted. Findings: The periareolar of both breasts was scanned. Subareolar ultrasound on both sides. On the right, there is elongated hypoechoic area extending from the nipple measuring 1.8 x 1.4 cm most compatible with benign gynecomastia. No significant similar finding on the contralateral left side. No suspicious solid or cystic lesion. Overall Assessment: Benign, BI-RAD 2 Management: Clinical Management of both breasts. For benign gynecomastia. If any progressive enlargement or if a new suspicious palpable area develops, the patient can be reimaged. Results were given to the patient verbally at the time of exam. Electronically signed and approved by: Philip Bella M.D. Radiologist
== END | disposition home or self-care (01) ==
LOC: RADMAMWWP 07:56
PROVIDERS: ATTEND Family Medicine
DX: N63.10 Unspecified lump in the right breast, unspecified quadrant
CPT/HCPCS: 77062; 77066

== ENCOUNTER 2024-10-20 05:46 | Day surgery (SDC) | payer OTHER ==
[2024-10-20] MEDS ORDERED: ALPRAZolam 0.5 MG TAB PO PRN (05:56)
[2024-10-20] MEDS ORDERED: NITROGLYCERIN SL TABS 0.4 MG TAB SUBLINGUAL PRN (05:56)
[2024-10-20] MEDS ORDERED: ALPRAZolam 0.25 MG TAB PO PRN (05:56)
[2024-10-20] MEDS: IV FLUID CONTINUATION 1,000 ML IV ONE (06:12)
[2024-10-20] MEDS: ASPIRIN 325 MG TAB PO ONE (06:31)
[2024-10-20] MEDS: SODIUM CHLORIDE 0.9% 1,000 ML in EMPTY BAG 1 BAG IV SCH (06:31)
[2024-10-20 06:34] VITALS: TEMP 97.6
[2024-10-20 06:44] LABS: Basophils # (A) 0.07 10*3/uL (0.00-0.10); Eosinophils # (A) 0.42 10*3/uL (0.04-0.35); Eosinophils % (A) 5.9 %; HCT 40.8 % (39.6-50.0); HGB 14.2 g/dL (13.0-17.0); Lymphocytes # (A) 1.14 10*3/uL (0.90-5.00); Lymphocytes % (A) 15.9 %; MCH 29.6 pg (27.0-32.0); MCHC 34.8 g/dL (32.0-37.0); MCV 85.2 fL (80.0-97.0); Mean Platelet Volume 8.9 fL (9.5-12.2); Monocytes # (A) 0.53 10*3/uL (0.20-1.00); Monocytes % (A) 7.4 %; Neutrophils # (A) 4.97 10*3/uL (1.80-7.70); Neutrophils % (A) 69.5 %; Platelet Count 327 10*3/uL (140-440); RBC 4.79 10*6/uL (4.40-5.60); RDW 13.2 % (11.5-14.5); WBC 7.15 10*3/uL (4.50-10.00)
[2024-10-20 06:54] LABS: African American GFR (CKD) >90 (>60 ml/min/1.73 sqM); Anion Gap 11 mmol/L; Blood Urea Nitrogen 17 mg/dL (9-20); Calcium 9.8 mg/dL (8.4-10.2); Carbon Dioxide 22 mmol/L (22-30); Chloride 100 mmol/L (98-107); Glucose 96 mg/dL (74-99); Non-African American GFR(CKD) 85 (>60 ml/min/1.73 sqM); Potassium 4.3 mmol/L (3.5-5.1); Sodium 133 mmol/L (137-145)
[2024-10-20] MEDS ORDERED: ATORVASTATIN 80 MG TAB PO ONE (07:00)
[2024-10-20] MEDS: MIDAZOLAM 2 MG/2 ML VIAL IVP ONE (11:29)
[2024-10-20] MEDS: LIDOCAINE 1% INJ 10MG/ML (20 ML MDV) SQ ONE (11:30)
[2024-10-20] MEDS: VERAPAMIL SYRINGE (5 MG/10 ML) INTRAARTER ONE (11:32)
[2024-10-20] MEDS: HEPARIN SODIUM 1,000 UN/ML (10ML VL) IV ONE (11:35)
[2024-10-20] MEDS: fentaNYL (PF) 50 MCG/ML 2 ML AMP IVP ONE (11:35)
[2024-10-20] MEDS: HEPARIN SODIUM,PORCINE (1 ML) 2,500 UNIT in SODIUM CHLORIDE 0.9% 250 ML IRRIGATION PRN (11:38)
[2024-10-20] MEDS: HEPARIN SODIUM,PORCINE 10,000 UNIT in SODIUM CHLORIDE 0.9% 1,000 ML IRRIGATION PRN (11:38)
[2024-10-20] MEDS: IOPAMIDOL-370 100ML BTL INJ ONE (11:42)
--- NOTE | 2024-10-20 11:45 | P.PCN ---
Date of Procedure: 10/20/24 Operative Findings: CARDIAC CATHETERIZATION PERFORMING PHYSICIAN: Presley Perez MD, RPVI PROCEDURE PERFORMED: 1. Selective right and left coronary angiogram 2. Left heart catheterization 3. Ultrasound-guided access of the right radial artery INDICATION: Symptomatic 74-year-old gentleman with history of CAD and prior stenting of the LCx and LAD and abnormal stress test COMPLICATION: None APPROACH: Right radial artery LEVEL OF SEDATION: Moderate with a sedation length of 12 minutes PROCEDURE DESCRIPTION: After obtaining an informed consent, the patient was brought to cardiac salvage laborer. Local anesthesia was performed using lidocaine subcutaneously. The right radial artery was cannulated using Seldinger technique, under ultrasound guidance, the guidewire passed easily, following that we advanced a 5-Sinhala sheath dilator assembly, the wire and dilator were removed and sheath was flushed. Following that, 2 mg of verapamil along with 5000 unit heparin were given. Selective right and left coronary angiogram using a 5-Sinhala JR4 and JL 3.5 catheters. Following that we did left heart catheterization using 5-Sinhala pigtail catheter. The procedure was completed there was no complication. SELECTIVE CORONARY ANGIOGRAM: The right coronary artery: Large caliber vessel and a dominant vessel with intermediate disease involving the proximal and distal portion appears to be the same as before and appears to be in the range of 60% Left main: Has mild disease on The left circumflex: Large caliber vessel nondominant vessel with patent stent in the proximal portion The left anterior descending artery: Large caliber vessel with patent stent in the midportion with only mild in-stent restenosis HEMODYNAMICS: The LVEDP was 11 mmHg with no significant gradient across aortic valve CONCLUSION: 1. Intermediate disease involving the proximal and distal RCA appears to be the same as before 2. Patent stent in the LCx and patent stent in the LAD POSTPROCEDURE MANAGEMENT: Medical treatment and consider IFR of the RCA if the patient remains symptomatic
[2024-10-20] MEDS ORDERED: RX INFO: IV CONTRAST WAS GIVEN 1 EACH MISC MISCELLANE PRN (12:05)
[2024-10-20 12:12] VITALS: RESP 16
[2024-10-20 15:30] VITALS: BP 138/72; PULSE 73
== END 2024-10-20 15:34 | disposition home or self-care (01) ==
LOC: CATHCVL 05:46
PROVIDERS: ATTEND Internal Medicine Interventional Cardiology
DX: I25.10 Atherosclerotic heart disease of native coronary artery without angina pectoris (principal); I65.23 Occlusion and stenosis of bilateral carotid arteries; I71.20 Thoracic aortic aneurysm, without rupture, unspecified; I27.20 Pulmonary hypertension, unspecified; I38 Endocarditis, valve unspecified; I10 Essential (primary) hypertension; E78.5 Hyperlipidemia, unspecified; J44.9 Chronic obstructive pulmonary disease, unspecified; Z72.0 Tobacco use; Z95.5 Presence of coronary angioplasty implant and graft; Z79.02 Long term (current) use of antithrombotics/antiplatelets; Z79.82 Long term (current) use of aspirin; Z79.899 Other long term (current) drug therapy
CPT/HCPCS: 99152; 93458; 80048; 85025; C1894; J2250; J1644 ×3; J2003; J3010; Q9967